=== PATIENT | female | born 1950 | race Caucasian/White ===

== ENCOUNTER 2020-11-04 11:44 | Emergency (ER) | payer MEDICAID, MEDICARE ==
[2020-11-04] MEDS ORDERED: Acetaminophen 325 MG Tab PO ONE (13:28)
--- NOTE | 2020-11-04 13:31 | EDM.PDOC ---
ED HPI GENERAL MEDICAL PROBLEM - General Chief Complaint: General Stated Complaint: OF 11/03 TEMP 106 Time Seen by Provider: 11/04/20 13:17 Source of Information: Reports: Patient, RN Notes Reviewed History Limitations: Reports: No Limitations - History of Present Illness INITIAL COMMENTS - FREE TEXT/NARRATIVE: 70-year-old female presents emergency department day complaint of fever, she has a known history of an abscess sigmoid colon suspected from perforated diverticular disease she now has an abscess about 2 inches in diameter. Is set up with a colorectal surgeon plan for colonoscopy and then resection of that area of her colon. She was also recently exposed has been diagnosed with COVID-19. Positive she has had negative result yesterday. She has been vaccinated x2 is set up to get booster shot this week. Sent here by her primary care for evaluation Covid versus exacerbation of her colonic abscess. Left Lower Abdomen Pain Score (Numeric/FACES): 4 - Related Data Allergies Allergy/AdvReac Type Severity Reaction Status Date / Time No Known Allergies Allergy Verified 11/04/20 12:28 Home Meds: Home Meds Atenolol/Chlorthalidone [Atenolol-Chlorthalidone 100-25] 1 tab PO DAILY 11/04/20 [History] Calcium Carb, Citrate/Vit D3 [Calcium + D3 ER Tablet] 1 tab PO BEDTIME 11/04/20 [History] Cyanocobalamin (Vitamin B-12) [Vitamin B12] 2,500 units PO BEDTIME 11/04/20 [History] Fish Oil/[place]-3 Fatty Acids [Fish Oil 1,000 MG] 2 tab PO BEDTIME 11/04/20 [History] Gabapentin [Neurontin] 100 - 300 mg PO BEDTIME 11/04/20 [History] Lovastatin 40 mg PO BEDTIME 11/04/20 [History] Multivitamin 1 tab PO BEDTIME 11/04/20 [History] Omeprazole 20 mg PO DAILY 11/04/20 [History] Venlafaxine [Effexor XR] 37.5 mg PO DAILY 11/04/20 [History] Venlafaxine [Effexor XR] 75 mg PO DAILY 11/04/20 [History] Vit A/Vit C/Vit E/Zinc/Copper [Preservision] 1 tab PO BID 11/04/20 [History] Zinc 50 mg PO BEDTIME 11/04/20 [History] Past Medical History HEENT History: Reports: Impaired Vision Cardiovascular History: Reports: High Cholesterol, Hypertension Gastrointestinal History: Reports: GERD, Other (See Below) Other Gastrointestinal History: current colon abcess [employer] History: Reports: Musculoskeletal History: Reports: Fracture Psychiatric History: Reports: Anxiety, Depression - Past Surgical History HEENT Surgical History: Reports: Tonsillectomy Musculoskeletal Surgical History: Reports: Other (See Below) Other Musculoskeletal Surgeries/Procedures:: foot surgery for fx Social & Family History - Tobacco Use Tobacco Use Status *Q: Never Tobacco User - Caffeine Use Caffeine Use: Reports: Coffee - Alcohol Use Days Per Week of Alcohol Use: 3 Number of Drinks Per Day: 1 Total Drinks Per Week: 3 - Recreational Drug Use Recreational Drug Use: No ED ROS GENERAL - Review of Systems Review Of Systems: See Below Constitutional: Reports: Fever, Chills, Fatigue HEENT: Reports: No Symptoms Respiratory: Reports: No Symptoms Cardiovascular: Reports: No Symptoms GI/Abdominal: Reports: Abdominal Pain, Flatus. Denies: Nausea, Vomiting ED EXAM, GENERAL - Physical Exam Exam: See Below Exam Limited By: No Limitations General Appearance: Alert, WD/WN, No Apparent Distress Respiratory/Chest: No Respiratory Distress, Lungs Clear, Normal Breath Sounds, No Accessory Muscle Use, Chest Non-Tender Cardiovascular: Regular Rate, Rhythm, No Murmur GI/Abdominal: Normal Bowel Sounds, Soft, Guarding, Tender (Tender left lower quadrant) Course - Vital Signs Last Recorded V/S: Last Vital Signs Temp 95 F L 11/04/20 12:25 Pulse 62 11/04/20 12:25 Resp 16 11/04/20 12:25 BP 114/80 11/04/20 12:25 Pulse Ox 100 11/04/20 12:25 - Orders/Labs/Meds Labs: Laboratory Tests 11/04/20 11/04/20 11/04/20 Range/Units 12:29 13:44 13:44 WBC 6.3 (4.5-11.0) K/uL RBC 4.26 (3.30-5.50) M/uL Hgb 12.8 (12.0-15.0) g/dL Hct 38.3 (36.0-48.0) % MCV 90 (80-98) fL MCH 30 (27-31) pg MCHC 33 (32-36) % Plt Count 315 (150-400) K/uL Neut % (Auto) 59.0 (36-66) % Lymph % (Auto) 25.9 (24-44) % [place] % (Auto) 13.3 H (2-6) % Eos % (Auto) 0.5 L (2-4) % Baso % (Auto) 1.3 H (0-1) % Sodium 137 L (140-148) mmol/L Potassium 3.4 L (3.6-5.2) mmol/L Chloride 97 L (100-108) mmol/L Carbon Dioxide 31 (21-32) mmol/L Anion Gap 12.4 (5.0-14.0) mmol/L BUN 12 (7-18) mg/dL Creatinine 0.8 (0.6-1.0) mg/dL Est Cr Clr Drug Dosing 58.12 mL/min Estimated GFR (MDRD) > 60 (>60) Glucose 112 H (74-106) mg/dL Lactic Acid (0.4-2.0) mmol/L Calcium 9.2 (8.5-10.1) mg/dL Total Bilirubin 0.2 (0.2-1.0) mg/dL AST 20 (15-37) U/L ALT 30 (12-78) U/L Alkaline Phosphatase 124 H (46-116) U/L C-Reactive Protein 9.86 H (0.0-0.3) mg/dL Total Protein 7.3 (6.4-8.2) g/dL Albumin 2.8 L (3.4-5.0) g/dL Globulin 4.5 H (2.3-3.5) g/dL Albumin/Globulin Ratio 0.6 L (1.2-2.2) Procalcitonin ng/mL SARS CoV-2 RNA Rapid RANDY Negative 11/04/20 11/04/20 Range/Units 13:44 13:44 WBC (4.5-11.0) K/uL RBC (3.30-5.50) M/uL Hgb (12.0-15.0) g/dL Hct (36.0-48.0) % MCV (80-98) fL MCH (27-31) pg MCHC (32-36) % Plt Count (150-400) K/uL Neut % (Auto) (36-66) % Lymph % (Auto) (24-44) % [place] % (Auto) (2-6) % Eos % (Auto) (2-4) % Baso % (Auto) (0-1) % Sodium (140-148) mmol/L Potassium (3.6-5.2) mmol/L Chloride (100-108) mmol/L Carbon Dioxide (21-32) mmol/L Anion Gap (5.0-14.0) mmol/L BUN (7-18) mg/dL Creatinine (0.6-1.0) mg/dL Est Cr Clr Drug Dosing mL/min Estimated GFR (MDRD) (>60) Glucose (74-106) mg/dL Lactic Acid 0.7 (0.4-2.0) mmol/L Calcium (8.5-10.1) mg/dL Total Bilirubin (0.2-1.0) mg/dL AST (15-37) U/L ALT (12-78) U/L Alkaline Phosphatase (46-116) U/L C-Reactive Protein (0.0-0.3) mg/dL Total Protein (6.4-8.2) g/dL Albumin (3.4-5.0) g/dL Globulin (2.3-3.5) g/dL Albumin/Globulin Ratio (1.2-2.2) Procalcitonin < 0.05 ng/mL SARS CoV-2 RNA Rapid RANDY Meds: Medications Discontinued Medications Generic Name Dose Route Start Last Admin Trade Name Freq PRN Reason Stop Dose Admin Acetaminophen 650 mg 11/04/20 13:28 11/04/20 13:42 Acetaminophen 325 Mg Tab PO 11/04/20 13:29 650 mg NOW ONE Administration Departure - Departure Time of Disposition: 15:11 Disposition: Home, Self-Care 01 Condition: Fair Clinical Impression: Fever Qualifiers: Fever type: unspecified Qualified Code(s): R50.9 - Fever, unspecified - Discharge Information Instructions: Fever, Adult Referrals: Enzo Brito MD [Primary Care Provider] - Forms: ED Department Discharge Additional Instructions: Continue with your current medications, keep your follow-up appointment with general surgery call return to the emergency department worsening of symptoms Sepsis Event Note (ED) - Focused Exam Vital Signs: Vital Signs Temp Pulse Resp BP Pulse Ox 11/04/20 12:25 95 F L 62 16 114/80 100 - Assessment/Plan Plan: Assessment Acuity = acute Site and laterality = fever Etiology = unknown Manifestations = none Location of injury = Home Lab values = CBC unremarkable potassium low at 3.4 consistent hypokalemia CRP elevated 9.8, lactic acid was negative as well as CRP, Covid also negative Plan She is to continue using Tylenol as needed for fever and pain control, she has a colonoscopy scheduled to evaluate her sigmoid abscess followed by surgical resection This note was dictated using [employer] voice recognition software please call with any questions on syntax or grammar.
== END 2020-11-04 15:36 | disposition home or self-care (01) ==
LOC: JP.ED 11:44
DX: R50.9 Fever, unspecified (principal); E78.00 Pure hypercholesterolemia, unspecified; K21.9 Gastro-esophageal reflux disease without esophagitis; I10 Essential (primary) hypertension; Z79.899 Other long term (current) drug therapy; Z20.822 Contact with and (suspected) exposure to COVID-19
CPT/HCPCS: 36415; 80053; 83605; 84145; 85025; 86140; 87635; 99283; A9270; U0002